=== PATIENT | female | born 1960 | race Caucasian/White ===

== ENCOUNTER 2017-10-28 21:42 | Emergency (ER) | payer MEDICARE ==
[~2017-10-28] VITALS: Ht 162.5 cm; Wt 165.6 kg
[2017-10-28] MEDS ORDERED: CYMBALTA60 MG PO (21:58)
[2017-10-28] MEDS ORDERED: GABAPENTIN400 MG PO (21:58)
[2017-10-28] MEDS ORDERED: NAPROXEN250 MG PO (21:59)
[2017-10-28] MEDS ORDERED: METFORMIN1000 MG PO (22:00)
[2017-10-28] MEDS ORDERED: ZITHROMAX250 MG PO (23:59)
[2017-10-28] MEDS ORDERED: PROAIR HFA8.5 GM INH (23:59)
== END 2017-10-29 00:20 | disposition home or self-care (01) ==
LOC: ED 21:42
DX: J20.9 Acute bronchitis, unspecified (principal); Z79.899 Other long term (current) drug therapy; Z87.891 Personal history of nicotine dependence